=== PATIENT | female | born 2000 | race Two or more races ===

== ENCOUNTER 2025-09-15 23:33 | Emergency (ER) | payer BC ==
[~2025-09-15] VITALS: Ht 185.4 cm; Wt 54.4 kg
[2025-09-15 23:41] VITALS: BP 125/87; O2SAT 96
[2025-09-15] MEDS ORDERED: 0.9 % SODIUM CHLORIDE 1,000 ML IV ONE (23:45)
[2025-09-15] MEDS ORDERED: FAMOTIDINE/PF 20 MG/2 ML VIAL IV ONE (23:45)
[2025-09-15] MEDS ORDERED: ONDANSETRON HCL 2 MG/ML VIAL IV ONE (23:45)
[2025-09-16] MEDS ORDERED: ONDANSETRON HCL 2 MG/ML VIAL ONE (01:07)
[2025-09-16] MEDS ORDERED: FAMOTIDINE/PF 20 MG/2 ML VIAL ONE (01:08)
== END 2025-09-16 03:25 | disposition home or self-care (01) ==
LOC: ER 23:34
DX: F12.929 Cannabis use, unspecified with intoxication, unspecified (principal)